=== PATIENT | male | born 1930 | race Caucasian/White ===

== ENCOUNTER 2016-07-24 14:31 | Inpatient (IN) | payer MEDICARE ==
[~2016-07-24] VITALS: Ht 177.8 cm; Wt 81.2 kg
[~2016-07-24 14:31] MED LIST: AMLO10TA2 PO; ASPI-482 PO; CALC500T27 PO; CLOP75TA27 PO; ERTA1VIA2 IV; HYDR12.58 PO; LEVE500T6 PO; LEVO50TA5 PO; LEVO75TA5 PO; LISI10TA2 PO; MAGN400C PO; METO25TA4 PO; MULT-658 PO; OMEG500C3 PO; PRED-220 PO; PROP150T PO; RAMI5CAP PO; VANC1VIA3 MC
[2016-07-24 14:59] LABS: BASO # 0.1 x10^3/uL (0.0-0.2); BASO % 1 % (0-3); EOS % 1 % (0-3); HEMATOCRIT 36.8 % (39.0-53.0); HEMOGLOBIN 12.4 g/dL (13.0-17.5); LYMPH # 1.4 x10^3/uL (1.0-4.8); LYMPH % 21 % (24-48); MEAN CORPUSCULAR HEMOGLOBIN 32 pg (25-35); MEAN CORPUSCULAR HGB CONC 34 g/dL (31-37); MEAN CORPUSCULAR VOLUME 95 fL (79-100); MONO % 8 % (0-9); NEUT % 70 % (31-73); PLATELET COUNT 143 x10^3/uL (140-400); RED BLOOD COUNT 3.87 x10^6/uL (4.30-5.70); RED CELL DISTRIBUTION WIDTH 12.7 % (11.5-14.5); WHITE BLOOD COUNT 6.6 x10^3/uL (4.0-11.0)
[2016-07-24] MEDS ORDERED: IV NORMAL SALINE 1000ML BAG 1,000 ML IV ONE (15:00)
--- NOTE | 2016-07-24 15:06 | RAD ---
Portable chest, 07/24/2016: History: Bradycardia difficulty breathing Comparison is made to a study from 11/06/2014. There has been a previous median sternotomy. The heart size is normal. There is calcific plaquing and tortuosity of the thoracic aorta. The pulmonary vascularity is normal. No pulmonary infiltrates are seen. There is no evidence of pleural fluid. IMPRESSION: 1. Aortic atherosclerosis. 2. No acute cardiopulmonary abnormality is detected.
[2016-07-24 15:11] LABS: CALCIUM 8.6 mg/dL (8.5-10.1); CREATININE 1.8 mg/dL (0.7-1.3); GFR 35.8; POTASSIUM 4.7 mmol/L (3.5-5.1)
--- NOTE | 2016-07-24 15:21 | PDOC2 ---
HINA CARTER WRAPPER STRIPPER 07/24/16 1521: CARDIAC CONSULT DATE OF CONSULT Date of Consult DATE: 07/24/16 TIME: 15:13 REASON FOR CONSULT Reason for Consult: Bradycardia REFERRING PHYSICIAN Referring Physician: Gris SOURCE Source: Chart review, Patient HISTORY OF PRESENT ILLNESS HISTORY OF PRESENT ILLNESS This is a pleasant 86 yo male admitted for complains of slow HR. He was at cardiac rehab with slight SOA during his exercise and was noted with frequent bigeminal PVCs with HR slowest at 38. He was feeling weak at that time. Denies any chest pain or lightheadedness. Denies any intermittent palpitations and his BP was adequate during that time. Denies any nausea, recent diarrhea and has been compliant with his cardiac medications. He is significant for CAD with CABG in the past and recently had what seems to be ventricular ablation in 01/2016 with prior hx of Ventricular arrhythmias. He is on metoprolol at home but unsure about the dosing. At home and previous cardiac rehab appointment such as last week, there wa no events like this and has not had any episodes of presyncopal symptoms. At times at home he does record slow HR but this is not followed up by pulse palpation to confirm slow HR. 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), Benign prostatic enlarg., Other ( ectopic left pelvic kidney) Endocrine: Hypothyroidism Dermatology: No pertinent hx PAST SURGICAL HISTORY Past Surgical History: Arthroscopy (left shoulder), CABG, Cataract Removal, Hernia Repair, Other (left carotid endarterectomy; PCI/stent) SOCIAL HISTORY Smoke: No (quit) ALCOHOL: none Drugs: None Lives: with Family ALLERGIES ALLERGIES: Coded Allergies: Penicillins (Verified Allergy, Intermediate, Rash, 11/23/14) Tolerates ertapenem Duzcrkj-Ghg-Gbm Reductase Inhibitor (Verified Allergy, Intermediate, ) moxifloxacin (Verified Allergy, Intermediate, 11/23/14) rosuvastatin calcium (Verified Allergy, Intermediate, states allergic all statins,it does something to his muscles, 11/23/14) ROS Review of System 14 point ROS evaluated with pertinent positives noted per HPI PHYSICAL EXAM General: Alert, Oriented X3, Cooperative, No acute distress HEENT: Atraumatic, Mucous membr. moist/pink Lungs: Clear to auscultation, Normal air movement Heart: Normal S1, Normal S2, Other (irregular- bigeminal PVCs HR 60s) Abdomen: Normal bowel sounds, Soft, No tenderness Extremities: No cyanosis, Other (2+ bilateral LE pitting edema) Skin: No breakdown, No significant lesion Neuro: Normal speech, Sensation intact Psych/Mental Status: Mental status NL, Mood NL MUSCULOSKELETAL: Osteoarthritic changes both hands LABS Lab: Laboratory Tests Test 07/24/16 14:46 White Blood Count 6.6x10^3/uL (4.0-11.0) Red Blood Count 3.87x10^6/uL (4.30-5.70) Hemoglobin 12.4g/dL (13.0-17.5) Hematocrit 36.8% (39.0-53.0) Mean Corpuscular Volume 95fL (79-100) Mean Corpuscular Hemoglobin 32pg (25-35) Mean Corpuscular Hemoglobin Concent 34g/dL (31-37) Red Cell Distribution Width 12.7% (11.5-14.5) Platelet Count 143x10^3/uL (140-400) Neutrophils (%) (Auto) 70% (31-73) Lymphocytes (%) (Auto) 21% (24-48) Monocytes (%) (Auto) 8% (0-9) Eosinophils (%) (Auto) 1% (0-3) Basophils (%) (Auto) 1% (0-3) Neutrophils # (Auto) 4.6x10^3uL (1.8-7.7) Lymphocytes # (Auto) 1.4x10^3/uL (1.0-4.8) Monocytes # (Auto) 0.5x10^3/uL (0.0-1.1) Eosinophils # (Auto) 0.0x10^3/uL (0.0-0.7) Basophils # (Auto) 0.1x10^3/uL (0.0-0.2) ECHOCARDIOGRAM ECHOCARDIOGRAM <Conclusion> Left ventricle is of normal size with normal wall thickness. Ejection fraction is 50%. There is a grade 1 diastolic dysfunction. There is no pericardial effusion. There is no mitral stenosis and a mild mitral regurgitation. The left atrium is enlarged to 4.6 cm. There is aortic sclerosis with thickening of the aortic valve leaflets. The aortic valve is tricuspid with no aortic stenosis or regurgitation. Right ventricle and the right atrium are of normal size. There is no pulmonary hypertension. There is a mild pulmonic regurgitation. DATE: 07/19/152030 HEART CATH HEART CATH Conclusion Severe red devil vessel coronary artery disease s/p coronary artery bypass surgery as described above with patent saphenous vein graft to the right coronary artery , patent left internal mammary artery 'Y' graft to the left anterior descending artery and diagonal branch and patent stent in the large obtuse marginal branch of left circumflex artery. The 50% stenosis involving the left main coronary artery was found to be physiologically not significant based on FFR measurement of 1.0. Recommendations Optimization of medical therapy. DATE: 11/27/14 1100 ASSESSMENT/PLAN ASSESSMENT/PLAN 1. Symptomatic Arrhythmia: Weakness and mild SOA. Frequent multiple bigeminies with slowest HR in the 38 occurring during exercise. Now in the 60-70s at rest. 2. Hx of Ventricular arrhythmias: possible ablation on 01/2016 at [facility] 3. CAD: CABG in the past. PCI/stent in the past. 4. Chronic diastolic CHF: compensated 5. 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 HTN: controlled 7. EDIS on CKD3: prerenal with dehydration likely contributing to #1. 8. Hypothyroidism 9. Mechanical fall: no injury, last Sunday. trip on a cord. Recommendations 1. Continue with metoprolol, possible poor chronotropic response. QTc is in the 450s. 2. Maintain lyte balance, K and Mg normal, trend troponin. TSH 3. TTE. 4. Will obtain records from [facility] postal supervisor. Dr. Hyatt 5. Continue with DAPT and secondary prevention measures. 6. Will likely need PPM, will monitor overnight. 7. IVF per ED, push po fluids. Problems: ROBBIE BA MD 07/25/16 1450: CARDIAC CONSULT ALLERGIES ALLERGIES: Coded Allergies: Penicillins (Verified Allergy, Intermediate, Rash, 11/23/14) Tolerates ertapenem Vppgrty-Owa-Xax Reductase Inhibitor (Verified Allergy, Intermediate, ) moxifloxacin (Verified Allergy, Intermediate, 11/23/14) rosuvastatin calcium (Verified Allergy, Intermediate, states allergic all statins,it does something to his muscles, 11/23/14) ASSESSMENT/PLAN ASSESSMENT/PLAN Patient seen and examined 07/24/16. Agree with DEER FARM WORKER's assessment and plan. Monitor closely with telemetry for evidence for sick sinus syndrome. CADs/p CABG, presently chest pain-free. Chronic diastolic heart failure clinically well compensated. Check 2-D echo to assess LV systolic function and Lexiscan nuclear stress test to rule out ischemia. We will obtain records from [facility] cardiology. Thank you for the consultation. Problems: HINA CARTER APRN Jul 24, 2016 15:21 ROBBIE BA MD Jul 25, 2016 14:50
--- NOTE | 2016-07-24 16:39 | PHYS DOC ---
Past Medical History Past Medical History: CAD, High Cholesterol, Hypertension, Hypothyroid, Renal Disease, Other Additional Past Medical Histor: falls, Past Surgical History: Coronary Bypass Surgery Additional Past Surgical Histo: two heart stents placed, right side hernia, left shoulder, left carotid Alcohol Use: None Drug Use: None Adult General Chief Complaint Chief Complaint: BRADYCARDIA HPI HPI This is an 86-year-old male who is presenting after having his morning cardiac rehabilitation exercises for weakness and a low heart rate area per that facility at a heart rate in the 30s to 40s and was symptomatic so he was sent here for evaluation. Upon arrival, the patient is bradycardic in the low 40s on palpation. He does state some mild weakness but no other significant symptoms. Denies any chest pain or shortness of breath. He states he recently had a catheterization several months ago and is being worked up for possible pacemaker placement but this had not yet been performed. Review of Systems Review of Systems Constitutional: Denies fever or chills [] Eyes: Denies change in visual acuity, redness, or eye pain [] HENT: Denies nasal congestion or sore throat [] Respiratory: Denies cough or shortness of breath [] Cardiovascular: No additional information not addressed in HPI [] GI: Denies abdominal pain, nausea, vomiting, bloody stools or diarrhea [] : Denies dysuria or hematuria [] Musculoskeletal: Denies back pain or joint pain [] Integument: Denies rash or skin lesions [] Neurologic: Denies headache, focal weakness or sensory changes [] Endocrine: Denies polyuria or polydipsia [] Current Medications Current Medications Current Medications Medications (Trade) Dose Ordered Sig/Rigoberto Start Time Stop Time Status Last Admin Dose Admin Sodium Chloride (Iv Sodium Chloride 0.9% 1000ml Bag) 1,000 ml @ 125 mls/hr Q8H 07/24/16 16:35 07/25/16 16:34 Allergies Allergies Allergies Coded Allergies Type Severity Reaction Last Updated Verified Penicillins Allergy Intermediate Rash 11/23/14 Yes Jjkiofg-Ngp-Net Reductase Inhibitor Allergy Intermediate 11/23/14 Yes moxifloxacin Allergy Intermediate 11/23/14 Yes rosuvastatin calcium Allergy Intermediate states allergic all statins,it does something to his muscles 11/23/14 Yes Physical Exam Physical Exam Constitutional: Well developed, well nourished, no acute distress, non-toxic appearance. [] HENT: Normocephalic, atraumatic, bilateral external ears normal, oropharynx moist, no oral exudates, nose normal. [] Eyes: PERRLA, EOMI, conjunctiva normal, no discharge. [] Neck: Normal range of motion, no tenderness, supple, no stridor. [] Cardiovascular:Heart rate regular rhythm, no murmur [] Lungs & Thorax: Bilateral breath sounds clear to auscultation [] Abdomen: Bowel sounds normal, soft, no tenderness, no masses, no pulsatile masses. [] Skin: Warm, dry, no erythema, no rash. [] Back: No tenderness, no CVA tenderness. [] Extremities: No tenderness, no cyanosis, no clubbing, ROM intact, no edema. [] Neurologic: Alert and oriented X 3, normal motor function, normal sensory function, no focal deficits noted. [] Psychologic: Affect normal, judgement normal, mood normal. [] Current Patient Data Vital Signs Vital Signs Date Time Temp Pulse Resp B/P Pulse Ox O2 Delivery O2 Flow Rate FiO2 07/24/16 16:35 72 24 156/62 97 Room Air 07/24/16 14:40 98.5 98.5 Lab Values Laboratory Tests Test 07/24/16 14:46 White Blood Count 6.6x10^3/uL (4.0-11.0) Red Blood Count 3.87x10^6/uL (4.30-5.70) L Hemoglobin 12.4g/dL (13.0-17.5) L Hematocrit 36.8% (39.0-53.0) L Mean Corpuscular Volume 95fL (79-100) Mean Corpuscular Hemoglobin 32pg (25-35) Mean Corpuscular Hemoglobin Concent 34g/dL (31-37) Red Cell Distribution Width 12.7% (11.5-14.5) Platelet Count 143x10^3/uL (140-400) Neutrophils (%) (Auto) 70% (31-73) Lymphocytes (%) (Auto) 21% (24-48) L Monocytes (%) (Auto) 8% (0-9) Eosinophils (%) (Auto) 1% (0-3) Basophils (%) (Auto) 1% (0-3) Neutrophils # (Auto) 4.6x10^3uL (1.8-7.7) Lymphocytes # (Auto) 1.4x10^3/uL (1.0-4.8) Monocytes # (Auto) 0.5x10^3/uL (0.0-1.1) Eosinophils # (Auto) 0.0x10^3/uL (0.0-0.7) Basophils # (Auto) 0.1x10^3/uL (0.0-0.2) Sodium Level 136mmol/L (136-145) Potassium Level 4.7mmol/L (3.5-5.1) Chloride Level 101mmol/L (98-107) Carbon Dioxide Level 24mmol/L (21-32) Anion Gap 11 (6-14) Blood Urea Nitrogen 38mg/dL (8-26) H Creatinine 1.8mg/dL (0.7-1.3) H Estimated GFR (Cockcroft-Gault) 35.8 Glucose Level 102mg/dL (70-99) H Calcium Level 8.6mg/dL (8.5-10.1) Magnesium Level 2.0mg/dL (1.8-2.4) Troponin I Quantitative < 0.017ng/mL (0.000-0.055) Thyroid Stimulating Hormone (TSH) 0.557uIU/mL (0.358-3.74) Laboratory Tests 07/24/16 14:46 Laboratory Tests 07/24/16 14:46 EKG EKG EKG as interpreted by me shows sinus urticaria with frequent PVCs and bigeminy. There is a leftward axis. There is an approximate rate of 30-40 bpm based upon the distance between QRS complex. No obvious ischemic findings. Radiology/Procedures Radiology/Procedures Portable chest, 07/24/2016: History: Bradycardia difficulty breathing Comparison is made to a study from 11/06/2014. There has been a previous median sternotomy. The heart size is normal. There is calcific plaquing and tortuosity of the thoracic aorta. The pulmonary vascularity is normal. No pulmonary infiltrates are seen. There is no evidence of pleural fluid. IMPRESSION: 1. Aortic atherosclerosis. 2. No acute cardiopulmonary abnormality is detected. Course & Med Decision Making Course & Med Decision Making Pertinent Labs and Imaging studies reviewed. (See chart for details) This 86-year-old male with symptomatic bradycardia will be admitted to the hospital for further evaluation treatment. Laboratory workup is fairly unremarkable including a set of cardiac enzymes. EKG showed significant bradycardia with frequent PVC as well as bigeminy. I discussed the case with the refinish technician, who agreed with this plan. I discussed the case with the hospitalist, Dr. Jones, who agreed to admit the patient for further evaluation and treatment. Dragon Disclaimer Dragon Disclaimer This electronic medical record was generated, in whole or in part, using a voice recognition dictation system. Departure Departure Impression: Primary Impression: Bradycardia Additional Impression: Generalized weakness Disposition: ADMITTED INPATIENT Admitting Physician: Gatito Jones Condition: STABLE Referrals: CHRIS BIRD Jr, MD (PCP) Problem Qualifiers ML ALONSO DO Jul 24, 2016 16:38
[2016-07-24] MEDS ORDERED: ONDANSETRON PF 4 MG/2 ML VIAL. IV PRN (16:45)
[2016-07-24 19:30] VITALS: BP 132/63
[2016-07-24] MEDS ORDERED: LISI-334 PO (20:46)
[2016-07-24] MEDS: predniSONE 5 MG TABLET PO SCH (21:30)
[2016-07-24] MEDS ORDERED: AMLODIPINE BESYLATE 10 MG TABLET. PO SCH (21:30)
[2016-07-24] MEDS: LEVETIRACETAM 500 MG TABLET. PO SCH (21:56)
[2016-07-24] MEDS: IV NORMAL SALINE 1000ML BAG 1,000 ML IV SCH (21:56)
[2016-07-24 23:20] VITALS: BP 141/53
--- NOTE | 2016-07-25 00:29 | HP ---
ADMIT DATE: 07/24/2016 CHIEF COMPLAINT: Bradycardia and weakness. HISTORY OF PRESENT ILLNESS: The patient is a pleasant 86-year-old male who presented to the ER with bradycardia. He was at cardiac rehab today with a slight shortness of breath, was noted to have bigeminy and a rate in the 30s. I discussed the case with the ER physician. We are going to admit the patient and consult Cardiology. PAST MEDICAL HISTORY: Hypertension, hyperlipidemia, syncope, coronary disease, V-tach, COPD, seizures, GERD, osteoarthritis, hypothyroidism, chronic renal insufficiency, BPH, coronary artery bypass grafting, cataract surgery, hernia repair, left carotid endarterectomy, arthroscopy, cardiac stents. ALLERGIES: PENICILLIN, STATINS, . FAMILY HISTORY: Coronary disease. SOCIAL HISTORY: He is retired. He does not drink, smoke or take drugs. MEDICATIONS: Reviewed, please refer to the MRAD. REVIEW OF SYSTEMS: GENERAL: No history of weight change or fevers. He complains of weakness. SKIN: No bruising, hair changes or rashes. EYES: No blurred, double or loss of vision. NOSE AND THROAT: No history of nosebleeds, hoarseness or sore throat. HEART: No history of palpitations, chest pain or shortness of breath on exertion. LUNGS: Denies cough, hemoptysis, wheezing or shortness of breath. GASTROINTESTINAL: Denies changes in appetite, nausea, vomiting, diarrhea or constipation. GENITOURINARY: No history of frequency, urgency, hesitancy or nocturia. NEUROLOGIC: Denies history of numbness, tingling, tremor or weakness. PSYCHIATRIC: No history of panic, anxiety or depression. ENDOCRINE: No history of heat or cold intolerance, polyuria or polydipsia. EXTREMITIES: Denies muscle weakness, joint pain, pain on walking or stiffness. PHYSICAL EXAMINATION: VITAL SIGNS: Temperature afebrile, pulse is currently at 60, it was as low as 34 when he arrived, his blood pressure is 161/65. His O2 sat is 95% on room air. GENERAL: He is alert, cooperative, weak. HEART: Normal S1, S2, irregular. LUNGS: Clear. ABDOMEN: Soft, positive bowel sounds. EXTREMITIES: 1+ edema. SKIN: No rashes. ENDOCRINE: No thyromegaly. LYMPHATICS: No cervical nodes. HEMATOPOIETIC: No bruising. LABORATORY DATA: White count 6, hemoglobin 12, platelets 143. Electrolytes normal other than a BUN and creatinine of 38 and 1.8. BNP is pending. TSH 0.5. Troponin is 0. ASSESSMENT AND PLAN: Symptomatic bradycardia. The patient is being admitted. We will hold any negative chronotropic agents. Serial enzymes, serial EKGs. Consult Cardiology. Resume other home medicines. PROGNOSIS: Guarded. MILTON HERNÁNDEZ DO DR: HETAL/hussein JOB#: [id number] / [id number]
[2016-07-25 03:03] VITALS: BP 152/58
[2016-07-25 05:10] LABS: BASO % 1 % (0-3); EOS % 2 % (0-3); HEMATOCRIT 35.7 % (39.0-53.0); HEMOGLOBIN 11.9 g/dL (13.0-17.5); LYMPH # 1.2 x10^3/uL (1.0-4.8); LYMPH % 22 % (24-48); MEAN CORPUSCULAR HEMOGLOBIN 32 pg (25-35); MEAN CORPUSCULAR HGB CONC 33 g/dL (31-37); MEAN CORPUSCULAR VOLUME 96 fL (79-100); MONO % 12 % (0-9); NEUT % 64 % (31-73); PLATELET COUNT 119 x10^3/uL (140-400); RED BLOOD COUNT 3.72 x10^6/uL (4.30-5.70); RED CELL DISTRIBUTION WIDTH 13.1 % (11.5-14.5); WHITE BLOOD COUNT 5.4 x10^3/uL (4.0-11.0)
[2016-07-25 05:27] LABS: CALCIUM 8.1 mg/dL (8.5-10.1); CREATININE 1.4 mg/dL (0.7-1.3); GFR 47.8; POTASSIUM 4.1 mmol/L (3.5-5.1)
[2016-07-25] MEDS: IV NORMAL SALINE 1000ML BAG 1,000 ML IV SCH ×2 (05:28→08:35)
--- NOTE | 2016-07-25 07:14 | EKG ---
[facility] [address] [place] [address] Test Date: 2016-07-24 Test Time: 14:39:31 Pat Name: RADHA MIR Department: Room: 205 1 Gender: M Traffic Expert: : [id number] Requested By: ML ALONSO Order Number: [id number] Reading MD: Ralph Grier Measurements Intervals [place] Rate: 75 P: 41 CO: 168 QRS: -23 QRSD: 110 T: -5 QT: 408 QTc: 458 Interpretive Statements SINUS RHYTHM VENTRICULAR PREMATURE COMPLEX(ES), BIGEMDAVIDY Electronically Signed On 07-25-2016 15:55:33 CDT by Ralph Grier
[2016-07-25] MEDS ORDERED: LEVOTHYROXINE 50 MCG TABLET PO SCH (07:30)
[2016-07-25 07:40] VITALS: BP 141/63
--- NOTE | 2016-07-25 08:42 | ACF ---
Admit Criteria Forms Admit Criteria Forms Admit Criteria Forms HEMODYNAMIC INSTABILITY Clinical Indications for Inpatient Care (Place 'X' for any and all applicable criteria): Ongoing inpatient care may be indicated for hemodynamic instability as indicated by ANY ONE of the following (1)(2)(3)(4)(10): [ ]I) Marked hemodynamic change from baseline (eg, SBP 20 mm Hg below patient's usual pressure) [ ]II) New SBP less than 90 mm Hg or mean arterial pressure less than 70 mm Hg [B](15) [X]IIII) Symptomatic heart rate greater than 100 or less than 60 beats per minute unresponsive to treatment (eg, analgesia, fluids) [ ]IV) Inadequate perfusion as indicated by ANY ONE of the following: [ ]a) Lactic acidosis, with lactic acid greater than 18 mg/dL (2 mmol/ L) or base excess less than -5 mEq/L [ ]b) New abnormal capillary refill (longer than 3 seconds) [ ]c) New altered mental status [ ]d) Reduced urine output [ ]V) Orthostatic vital sign changes [B] that are symptomatic and unresponsive to treatment (eg, fluids) [ ]) IV inotropic or vasopressor medication required(26) Extended stay beyond goal length of stay for primary condition may be needed until ALL of the following are present(1)(2)(3): [ ]a) Heart rate > 60 and < 100 beats per minute or patient is clinically stable at current rate (eg, baseline) [ ]b) SBP >100 mm Hg and <160 mm Hg or patient is clinically stable at current pressure (eg, baseline) [ ]c) DBP greater than 50 mm Hg and less than 100 mm Hg or patient is clinically stable at current pressure (eg, baseline) [ ]d) Urine output greater than 0.5 mL/kg per hour [ ]e) Room air oxygen saturation 90% or greater or at baseline [ ]f) Orthostatic vital sign changes absent, asymptomatic, at baseline, or manageable at lower level of care [ ]g) Medical comorbidities manageable at lower level of care The original [employer] content created by [employer] has been revised. The portions of the content which have been revised are identified through the use of italic text or in bold, and [employer] has neither reviewed nor approved the modified material. All other unmodified content is copyright [facility]. Please see references footnoted in the original [facility] edition 2016 USHA BAIN Jul 25, 2016 08:42
[2016-07-25] MEDS ORDERED: MULTIVITAMIN with MINERAL TABLET. PO SCH (09:00)
[2016-07-25] MEDS ORDERED: ASPIRIN ENTERIC COATED 81 MG TABLET.DR. PO SCH (09:00)
[2016-07-25] MEDS ORDERED: LISINOPRIL 20 MG TABLET PO SCH (09:00)
[2016-07-25] MEDS ORDERED: CLOPIDOGREL BISULFATE 75 MG TABLET PO SCH (09:00)
[2016-07-25] MEDS ORDERED: CALCIUM CARBONATE 500 MG TABLET PO SCH (09:00)
[2016-07-25] MEDS: predniSONE 5 MG TABLET PO SCH (10:30)
[2016-07-25] MEDS: LEVETIRACETAM 500 MG TABLET. PO SCH (10:30)
[2016-07-25 10:32] VITALS: BP 158/61
[2016-07-25] MEDS ORDERED: ACETAMINOPHEN 325 MG TABLET. PO PRN (11:00)
[2016-07-25] MEDS ORDERED: REGADENOSON 0.4 MG/5 ML DISP.SYRIN. IV ONE (11:15)
--- NOTE | 2016-07-25 11:49 | CARD ---
APPROVED REPORT EXAM: Two-dimensional and M-mode echocardiogram with Doppler and color Doppler. Other Information Quality : GoodHR: 76bpm INDICATION Bradycardia 2D DIMENSIONS RVDd3.1 (2.9-3.5cm)Left Atrium(2D)3.9 (1.6-4.0cm) IVSd1.1 (0.7-1.1cm)Aortic Root(2D)3.1 (2.0-3.7cm) LVDd4.2 (3.9-5.9cm)PWd1.1 (0.7-1.1cm) LVDs2.7 (2.5-4.0cm)FS (%) 34.2 % SV49.1 mlLVEF(%)60.0 (>50%) Aortic Valve AoV Peak Scott.134.4cm/sAoV VTI31.1cm AO Peak GR.7.2mmHgLVOT Peak Scott.127.1cm/s LVOT VTI 27.75cmAO Mean GR.3mmHg Mitral Valve MV E Htluoacg26.4cm/sMV DECEL [id number] MV A Xmckxffg196.5cm/sMV E Mean Gr.3mmHg MV DLZ52apZ/A Ratio0.5 MV A Tlnzpoev320ffVKD (PHT)3.00cm2 TDI E/Lateral E'5.9E/Medial E'8.0 Pulmonary Valve PV Peak Jegvmhiz255.1cm/sPV Peak Grad.8mmHg RVOT VTI16.5cm Tricuspid Valve TR P. Ugwxtvwm182am/sRAP KEWLRMXP7tfBe TR Peak Gr.41fsEuYYLT37hmRi Pulmonary Vein S1 Snkgbhwz90.8cm/sD2 Waukrspe12.3cm/s PVa lpgporfa213sodq LEFT VENTRICLE The left ventricle is normal size. There is normal left ventricular wall thickness. Left ventricle sy stolic function is low normal. EF 50-55% There is grossly normal LV segmental wall motion. The infero lateral wall was not well visualized and appears mildly hypokinetic. Transmitral Doppler flow pattern is Grade I-abnormal relaxation pattern. There is no ventricular septal defect visualized. RIGHT VENTRICLE The right ventricle is normal size. The right ventricular systolic function is normal. ATRIA The left atrium size is normal. The right atrium size is normal. The atrial septum is mildly aneurysm al. No significant ASD/PFO identified by color doppler. AORTIC VALVE The aortic valve is mildly calcified but opens well. The aortic valve is trileaflet. Doppler and [place] r Flow revealed no significant aortic regurgitation. There is no significant aortic valvular stenosis . MITRAL VALVE Mitral annular calcification is mild. The mitral valve leaflets are thickened but open well. There is no evidence of mitral valve prolapse. There is no mitral valve stenosis. Doppler and Color Flow reve aled mild mitral regurgitation. TRICUSPID VALVE The tricuspid valve is normal in structure and function. Doppler and Color Flow revealed trace tricus pid regurgitation. The PA pressure was estimated at 39 mmHg. There is no tricuspid valve stenosis. PULMONIC VALVE Doppler and Color Flow revealed mild pulmonic valvular regurgitation. There is no pulmonic valvular s tenosis. GREAT VESSELS The aortic root is normal in size. The ascending aorta is normal in size. The IVC is normal in size a nd collapses >50% with inspiration. PERICARDIAL EFFUSION There is no pleural effusion. There is no evidence of significant pericardial effusion. Critical Notification Critical Value: No <Conclusion> Left ventricle systolic function is low normal. EF 50-55% There is grossly normal LV segmental wall motion. The inferolateral wall was not well visualized and appears mildly hypokinetic. The atrial septum is mildly aneurysmal. No significant ASD/PFO identified by color doppler. The aortic valve is mildly calcified but opens well. The aortic valve is trileaflet. Doppler and Color Flow revealed mild mitral regurgitation. Doppler and Color Flow revealed trace tricuspid regurgitation. The PA pressure was estimated at 39 mm Hg.
--- NOTE | 2016-07-25 13:25 | PDOC ---
PROGRESS NOTES Chief Complaint Chief Complaint cc: symptomatic bradycardia, sob CAD with prior CABG and PCI prior left carotid endarterectomy prior ventricular arrhythmias COPD HTN HLD prior syncopal episodes GERD Osteoarthritis chronic kidney disease BPH prior seizures hypothyroidism hx of hernia s/p repair History of Present Illness History of Present Illness Patient seen and evaluated at bedside. Patient is resting, in no apparent distress. He is currently c/o a headache and is requesting some tylenol. Currently undergoing cardiac evaluation and workup. d/w nurse. Vitals Vitals Vital Signs Date Time Temp Pulse Resp B/P Pulse Ox O2 Delivery O2 Flow Rate FiO2 07/25/16 10:33 77 180/83 07/25/16 10:32 98.7 18 95 Room Air 98.7 Physical Exam General: Alert, Oriented X3, Cooperative, No acute distress Heart: Regular rate, Normal S1, Normal S2, Other Lungs: Clear, Other (negative chest retractions and/or accessory muscle use ) Abdomen: Normal bowel sounds, Soft, No tenderness Extremities: No cyanosis, Other ( compression stockings to b/l lower extremities. ) Skin: No breakdown, No significant lesion Labs LABS Laboratory Tests Test 07/24/16 14:46 07/24/16 22:05 07/25/16 04:25 White Blood Count 6.6x10^3/uL (4.0-11.0) 5.4x10^3/uL (4.0-11.0) Red Blood Count 3.87x10^6/uL (4.30-5.70) 3.72x10^6/uL (4.30-5.70) Hemoglobin 12.4g/dL (13.0-17.5) 11.9g/dL (13.0-17.5) Hematocrit 36.8% (39.0-53.0) 35.7% (39.0-53.0) Mean Corpuscular Volume 95fL (79-100) 96fL (79-100) Mean Corpuscular Hemoglobin 32pg (25-35) 32pg (25-35) Mean Corpuscular Hemoglobin Concent 34g/dL (31-37) 33g/dL (31-37) Red Cell Distribution Width 12.7% (11.5-14.5) 13.1% (11.5-14.5) Platelet Count 143x10^3/uL (140-400) 119x10^3/uL (140-400) Neutrophils (%) (Auto) 70% (31-73) 64% (31-73) Lymphocytes (%) (Auto) 21% (24-48) 22% (24-48) Monocytes (%) (Auto) 8% (0-9) 12% (0-9) Eosinophils (%) (Auto) 1% (0-3) 2% (0-3) Basophils (%) (Auto) 1% (0-3) 1% (0-3) Neutrophils # (Auto) 4.6x10^3uL (1.8-7.7) 3.4x10^3uL (1.8-7.7) Lymphocytes # (Auto) 1.4x10^3/uL (1.0-4.8) 1.2x10^3/uL (1.0-4.8) Monocytes # (Auto) 0.5x10^3/uL (0.0-1.1) 0.7x10^3/uL (0.0-1.1) Eosinophils # (Auto) 0.0x10^3/uL (0.0-0.7) 0.1x10^3/uL (0.0-0.7) Basophils # (Auto) 0.1x10^3/uL (0.0-0.2) 0.0x10^3/uL (0.0-0.2) Sodium Level 136mmol/L (136-145) 141mmol/L (136-145) Potassium Level 4.7mmol/L (3.5-5.1) 4.1mmol/L (3.5-5.1) Chloride Level 101mmol/L (98-107) 105mmol/L (98-107) Carbon Dioxide Level 24mmol/L (21-32) 26mmol/L (21-32) Anion Gap 11 (6-14) 10 (6-14) Blood Urea Nitrogen 38mg/dL (8-26) 31mg/dL (8-26) Creatinine 1.8mg/dL (0.7-1.3) 1.4mg/dL (0.7-1.3) Estimated GFR (Cockcroft-Gault) 35.8 47.8 Glucose Level 102mg/dL (70-99) 81mg/dL (70-99) Calcium Level 8.6mg/dL (8.5-10.1) 8.1mg/dL (8.5-10.1) Magnesium Level 2.0mg/dL (1.8-2.4) Troponin I Quantitative < 0.017ng/mL (0.000-0.055) 0.035ng/mL (0.000-0.055) 0.072ng/mL (0.000-0.055) Thyroid Stimulating Hormone (TSH) 0.557uIU/mL (0.358-3.74) Review of Systems Review of Systems (+) headache Denies chest pain, sob, abdominal pain, n/v/d, dizziness/lightheadedness, vision changes, or fever/chills. Assessment and Plan Assessmemt and Plan Problems Medical Problems: (1) Bradycardia Status: Acute (2) Generalized weakness Status: Acute Assessment: 1.) symptomatic bradycardia, currently sinus and asymptomatic 2.) CAD, with prior CABG and PCI/stents 3.) HTN 4.) CHF, currently compensated 5.) EDIS on CKD3: 6.) Hypothyroidism 7.) COPD 8.) Hyperlipidemia 9.) prior syncopal episodes 10.) hx of prior ventricular arrhythmias Plan: 1.) continue telemetry monitoring 2.) encourage PO hydration 3.) appreciate subspecialty input 4.) continue home medications as appropriate 5.) monitor AM labs Problems: Comment Review of Relevant I have reviewed the following items yolande (where applicable) has been applied. Labs Laboratory Tests Test 07/24/16 14:46 07/24/16 22:05 07/25/16 04:25 White Blood Count 6.6x10^3/uL (4.0-11.0) 5.4x10^3/uL (4.0-11.0) Red Blood Count 3.87x10^6/uL (4.30-5.70) 3.72x10^6/uL (4.30-5.70) Hemoglobin 12.4g/dL (13.0-17.5) 11.9g/dL (13.0-17.5) Hematocrit 36.8% (39.0-53.0) 35.7% (39.0-53.0) Mean Corpuscular Volume 95fL (79-100) 96fL (79-100) Mean Corpuscular Hemoglobin 32pg (25-35) 32pg (25-35) Mean Corpuscular Hemoglobin Concent 34g/dL (31-37) 33g/dL (31-37) Red Cell Distribution Width 12.7% (11.5-14.5) 13.1% (11.5-14.5) Platelet Count 143x10^3/uL (140-400) 119x10^3/uL (140-400) Neutrophils (%) (Auto) 70% (31-73) 64% (31-73) Lymphocytes (%) (Auto) 21% (24-48) 22% (24-48) Monocytes (%) (Auto) 8% (0-9) 12% (0-9) Eosinophils (%) (Auto) 1% (0-3) 2% (0-3) Basophils (%) (Auto) 1% (0-3) 1% (0-3) Neutrophils # (Auto) 4.6x10^3uL (1.8-7.7) 3.4x10^3uL (1.8-7.7) Lymphocytes # (Auto) 1.4x10^3/uL (1.0-4.8) 1.2x10^3/uL (1.0-4.8) Monocytes # (Auto) 0.5x10^3/uL (0.0-1.1) 0.7x10^3/uL (0.0-1.1) Eosinophils # (Auto) 0.0x10^3/uL (0.0-0.7) 0.1x10^3/uL (0.0-0.7) Basophils # (Auto) 0.1x10^3/uL (0.0-0.2) 0.0x10^3/uL (0.0-0.2) Sodium Level 136mmol/L (136-145) 141mmol/L (136-145) Potassium Level 4.7mmol/L (3.5-5.1) 4.1mmol/L (3.5-5.1) Chloride Level 101mmol/L (98-107) 105mmol/L (98-107) Carbon Dioxide Level 24mmol/L (21-32) 26mmol/L (21-32) Anion Gap 11 (6-14) 10 (6-14) Blood Urea Nitrogen 38mg/dL (8-26) 31mg/dL (8-26) Creatinine 1.8mg/dL (0.7-1.3) 1.4mg/dL (0.7-1.3) Estimated GFR (Cockcroft-Gault) 35.8 47.8 Glucose Level 102mg/dL (70-99) 81mg/dL (70-99) Calcium Level 8.6mg/dL (8.5-10.1) 8.1mg/dL (8.5-10.1) Magnesium Level 2.0mg/dL (1.8-2.4) Troponin I Quantitative < 0.017ng/mL (0.000-0.055) 0.035ng/mL (0.000-0.055) 0.072ng/mL (0.000-0.055) Thyroid Stimulating Hormone (TSH) 0.557uIU/mL (0.358-3.74) Laboratory Tests Test 07/24/16 14:46 07/24/16 22:05 07/25/16 04:25 White Blood Count 6.6x10^3/uL (4.0-11.0) 5.4x10^3/uL (4.0-11.0) Red Blood Count 3.87x10^6/uL (4.30-5.70) 3.72x10^6/uL (4.30-5.70) Hemoglobin 12.4g/dL (13.0-17.5) 11.9g/dL (13.0-17.5) Hematocrit 36.8% (39.0-53.0) 35.7% (39.0-53.0) Mean Corpuscular Volume 95fL (79-100) 96fL (79-100) Mean Corpuscular Hemoglobin 32pg (25-35) 32pg (25-35) Mean Corpuscular Hemoglobin Concent 34g/dL (31-37) 33g/dL (31-37) Red Cell Distribution Width 12.7% (11.5-14.5) 13.1% (11.5-14.5) Platelet Count 143x10^3/uL (140-400) 119x10^3/uL (140-400) Neutrophils (%) (Auto) 70% (31-73) 64% (31-73) Lymphocytes (%) (Auto) 21% (24-48) 22% (24-48) Monocytes (%) (Auto) 8% (0-9) 12% (0-9) Eosinophils (%) (Auto) 1% (0-3) 2% (0-3) Basophils (%) (Auto) 1% (0-3) 1% (0-3) Neutrophils # (Auto) 4.6x10^3uL (1.8-7.7) 3.4x10^3uL (1.8-7.7) Lymphocytes # (Auto) 1.4x10^3/uL (1.0-4.8) 1.2x10^3/uL (1.0-4.8) Monocytes # (Auto) 0.5x10^3/uL (0.0-1.1) 0.7x10^3/uL (0.0-1.1) Eosinophils # (Auto) 0.0x10^3/uL (0.0-0.7) 0.1x10^3/uL (0.0-0.7) Basophils # (Auto) 0.1x10^3/uL (0.0-0.2) 0.0x10^3/uL (0.0-0.2) Sodium Level 136mmol/L (136-145) 141mmol/L (136-145) Potassium Level 4.7mmol/L (3.5-5.1) 4.1mmol/L (3.5-5.1) Chloride Level 101mmol/L (98-107) 105mmol/L (98-107) Carbon Dioxide Level 24mmol/L (21-32) 26mmol/L (21-32) Anion Gap 11 (6-14) 10 (6-14) Blood Urea Nitrogen 38mg/dL (8-26) 31mg/dL (8-26) Creatinine 1.8mg/dL (0.7-1.3) 1.4mg/dL (0.7-1.3) Estimated GFR (Cockcroft-Gault) 35.8 47.8 Glucose Level 102mg/dL (70-99) 81mg/dL (70-99) Calcium Level 8.6mg/dL (8.5-10.1) 8.1mg/dL (8.5-10.1) Magnesium Level 2.0mg/dL (1.8-2.4) Troponin I Quantitative < 0.017ng/mL (0.000-0.055) 0.035ng/mL (0.000-0.055) 0.072ng/mL (0.000-0.055) Thyroid Stimulating Hormone (TSH) 0.557uIU/mL (0.358-3.74) Medications Current Medications Sodium Chloride (Iv Sodium Chloride 0.9% 1000ml Bag) 1,000 ml @ 1,000 mls/hr 1X ONCE IV Last administered on 07/24/16 15:53; Start 07/24/16 at 15:00; Stop 07/24/16 at 15:59; Status DC Ondansetron HCl 4 mg 4 mg PRN Q8HRS PRN IV NAUSEA/VOMITING; Start 07/24/16 at 16:45; Stop 07/25/16 at 16:44 Sodium Chloride (Iv Sodium Chloride 0.9% 1000ml Bag) 1,000 ml @ 125 mls/hr Q8H IV Last administered on 07/25/16 05:28; Start 07/24/16 at 16:35; Stop at 16:34 Amlodipine Besylate (Norvasc) 10 mg HS PO Last administered on 07/24/16 21:57 ; Start 07/24/16 at 21:30 Aspirin (Ecotrin) 81 mg DAILY PO Last administered on 07/25/16 10:33; Start at 09:00 Calcium Carbonate/ Glycine (Oscal) 500 mg DAILY PO Last administered on 10:30; Start 07/25/16 at 09:00 Clopidogrel Bisulfate (Plavix) 75 mg DAILY PO Last administered on 07/25/16 11 :29; Start 07/25/16 at 09:00 Levetiracetam (Keppra) 500 mg BID PO Last administered on 07/25/16 10:30; Start 07/24/16 at 21:30 Levothyroxine Sodium (Synthroid) 50 mcg DAILYAC PO Last administered on 06:22; Start 07/25/16 at 07:30 Lisinopril (Prinivil) 20 mg DAILY PO Last administered on 07/25/16 10:33; Start 07/25/16 at 09:00 Prednisone (Prednisone) 5 mg BID PO Last administered on 07/25/16 10:30; Start 07/24/16 at 21:30 Multivitamins (Thera M Plus) 1 tab DAILY PO Last administered on 07/25/16 10: 33; Start 07/25/16 at 09:00 Acetaminophen (Tylenol) 650 mg PRN Q6HRS PRN PO pain Last administered on 11:29; Start 07/25/16 at 11:00 Regadenoson (Lexiscan) 0.4 mg 1X ONCE IV Last administered on 07/25/16 11:15 ; Start 07/25/16 at 11:15; Stop 07/25/16 at 11:16; Status DC Active Scripts Active Reported Lisinopril 20 Mg Tablet 1 Tab PO DAILY Levetiracetam 500 Mg Tablet 1 Tab PO BID Levothyroxine Sodium 50 Mcg Tablet 50 Mg PO DAILY Prednisone 10 Mg Tablet 5 Mg PO DAILY Aspir 81 (Aspirin) 81 Mg Tablet.dr 81 Mg PO HS Calcium (Calcium Carbonate) 500 Mg Tablet 600 Mg PO DAILY Centrum Silver Tablet (Multivits-Min/Fa/Lycopene/Lut) 1 Each Tablet 1 Each PO DAILY Amlodipine Besylate 10 Mg Tablet 10 Mg PO HS Metoprolol Tartrate 25 Mg Tablet 25 Mg PO BID Plavix (Clopidogrel Bisulfate) 75 Mg Tablet 75 Mg PO DAILY Vitals/I & O Vital Sign - Last 24 Hours 07/24/16 07/24/16 07/24/16 07/24/16 14:40 15:05 15:35 16:05 Temp 98.5 98.5 Pulse 34 72 72 72 Resp 27 22 24 24 B/P 160/68 141/76 150/74 149/66 Pulse Ox 97 97 97 97 O2 Delivery Room Air Room Air Room Air Room Air 4/07/24/16 07/24/16 07/24/16 16:35 17:05 17:35 18:05 Pulse 72 65 67 67 Resp B/P 156/62 161/65 149/63 167/70 Pulse Ox 97 97 95 95 O2 Delivery Room Air Room Air Room Air Room Air 07/24/16 07/24/16 07/24/16 07/24/16 18:35 19:20 19:30 21:57 Temp 97.8 97.8 Pulse 67 73 73 Resp B/P 169/77 132/63 132/63 Pulse Ox 95 96 O2 Delivery Room Air Room Air Room Air 07/24/16 07/25/16 07/25/16 07/25/16 23:20 03:03 07:40 08:00 Temp 97.9 98.8 98.8 97.9 98.8 98.8 Pulse 64 71 78 Resp B/P 141/53 152/58 141/63 Pulse Ox 95 93 95 O2 Delivery Room Air Room Air Room Air Room Air 07/25/16 07/25/16 10:32 10:33 Temp 98.7 98.7 Pulse 78 77 Resp B/P 158/61 180/83 Pulse Ox 95 O2 Delivery Room Air Intake and Output 07/24/16 07/24/16 07/25/16 15:00 23:00 07:00 Intake Total 1000 ml 500 ml Balance 1000 ml 500 ml BETTYNIAL K III DO Jul 25, 2016 13:25
--- NOTE | 2016-07-25 13:53 | PDOC ---
HINA CARTER DEHYDROGENATION CONVERTER HELPER 07/25/16 1353: CARDIO Progress Notes Date and Time Date of Service 07/25/2016 Vitals Vitals Vital Signs Date Time Temp Pulse Resp B/P Pulse Ox O2 Delivery O2 Flow Rate FiO2 07/25/16 10:33 77 180/83 07/25/16 10:32 98.7 18 95 Room Air 98.7 Weight Weight [ ] Input and Output Intake and Output Intake and Output 07/25/16 07:00 Intake Total 1500 ml Balance 1500 ml Intake Oral 500 ml IV Total 1000 ml # Voids 7 Laboratory Labs Laboratory Tests Test 07/24/16 14:46 07/24/16 22:05 07/25/16 04:25 White Blood Count 6.6x10^3/uL (4.0-11.0) 5.4x10^3/uL (4.0-11.0) Red Blood Count 3.87x10^6/uL (4.30-5.70) 3.72x10^6/uL (4.30-5.70) Hemoglobin 12.4g/dL (13.0-17.5) 11.9g/dL (13.0-17.5) Hematocrit 36.8% (39.0-53.0) 35.7% (39.0-53.0) Mean Corpuscular Volume 95fL (79-100) 96fL (79-100) Mean Corpuscular Hemoglobin 32pg (25-35) 32pg (25-35) Mean Corpuscular Hemoglobin Concent 34g/dL (31-37) 33g/dL (31-37) Red Cell Distribution Width 12.7% (11.5-14.5) 13.1% (11.5-14.5) Platelet Count 143x10^3/uL (140-400) 119x10^3/uL (140-400) Neutrophils (%) (Auto) 70% (31-73) 64% (31-73) Lymphocytes (%) (Auto) 21% (24-48) 22% (24-48) Monocytes (%) (Auto) 8% (0-9) 12% (0-9) Eosinophils (%) (Auto) 1% (0-3) 2% (0-3) Basophils (%) (Auto) 1% (0-3) 1% (0-3) Neutrophils # (Auto) 4.6x10^3uL (1.8-7.7) 3.4x10^3uL (1.8-7.7) Lymphocytes # (Auto) 1.4x10^3/uL (1.0-4.8) 1.2x10^3/uL (1.0-4.8) Monocytes # (Auto) 0.5x10^3/uL (0.0-1.1) 0.7x10^3/uL (0.0-1.1) Eosinophils # (Auto) 0.0x10^3/uL (0.0-0.7) 0.1x10^3/uL (0.0-0.7) Basophils # (Auto) 0.1x10^3/uL (0.0-0.2) 0.0x10^3/uL (0.0-0.2) Sodium Level 136mmol/L (136-145) 141mmol/L (136-145) Potassium Level 4.7mmol/L (3.5-5.1) 4.1mmol/L (3.5-5.1) Chloride Level 101mmol/L (98-107) 105mmol/L (98-107) Carbon Dioxide Level 24mmol/L (21-32) 26mmol/L (21-32) Anion Gap 11 (6-14) 10 (6-14) Blood Urea Nitrogen 38mg/dL (8-26) 31mg/dL (8-26) Creatinine 1.8mg/dL (0.7-1.3) 1.4mg/dL (0.7-1.3) Estimated GFR (Cockcroft-Gault) 35.8 47.8 Glucose Level 102mg/dL (70-99) 81mg/dL (70-99) Calcium Level 8.6mg/dL (8.5-10.1) 8.1mg/dL (8.5-10.1) Magnesium Level 2.0mg/dL (1.8-2.4) Troponin I Quantitative < 0.017ng/mL (0.000-0.055) 0.035ng/mL (0.000-0.055) 0.072ng/mL (0.000-0.055) Thyroid Stimulating Hormone (TSH) 0.557uIU/mL (0.358-3.74) Assessment Assessment 1. Symptomatic bradycardia: Slowest at 38 with multiple ventricular bigeminies. No further tobin episodes overnight. SR with PVCs. chronotropic incompetence vs intolerance to BB 2. Hx of Ventricular arrhythmias: possible ablation on 01/2016 at [facility] 3. CAD: CABG in the past. PCI/stent in the past. CP free 4. Chronic diastolic CHF: compensated. TTE with mild hypokinesis to inferolateral wall otherwise normal wall motion with preserved EF. 5. 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 HTN: controlled 7. EDIS on CKD3: prerenal with dehydration likely contributing to #1. 8. Hypothyroidism 9. Mechanical fall: no injury, last Sunday. trip on a cord. Recommendations 1. MPI today to rule out any ischemic component. 2. Continue with DAPT and secondary prevention measures. 3. Will obtain records from [facility] escalator service mechanic. Dr. Hyatt 4. Will need event monitor. Will likely need PPM. Will defer this to his [facility] escalator service mechanic/EP 5. Hold AV rhonda blocking agents for now. ROBBIE BA MD 07/25/16 7886: CARDIO Progress Notes Assessment Assessment Patient seen and examined. Agree with REMEDIATION TECHNICIAN's assessment and plan. Telemetry showed episodes of sinus bradycardia without any significant pauses or other arrhythmias. 2-D echo showed LVEF 50-55%. Lexiscan nuclear stress test showed lateral wall infarct without any significant ischemia. Plan for event monitor as an outpatient. HINA CARTER DEHYDROGENATION CONVERTER HELPER Jul 25, 2016 13:53 ROBBIE BA MD Jul 25, 2016 14:59
[2016-07-25 14:24] VITALS: BP 144/62
--- NOTE | 2016-07-25 14:56 | RAD ---
APPROVED REPORT Test Type: Pharmacological Stress Nurse/Tech: Joselyn Marvin R.N. Test Indications: bradycardia, Cardiac History: CABG, stent, htn, Medications: see ehr Medical History: see ehr Resting ECG: SR with PVCs-multifocal Resting Heart Rate: 82 bpm Resting Blood Pressure: 143/57mmHg Pretest Chest Pain: No chest pain Nurse/Tech Notes heart tones regular, lungs cta, good radial pulse Consent: The procedure was explained to the patient in lay terms. Informed consent was witnessed. Santosh eout was entered into [employer]. History and Stress Test performed by Joselyn Marvin R.N. Pharm. Details Pharmacologic stress testing was performed using 0.4mg per 5ml of regadenoson given intravenously ove r 7-10 seconds. Stress Symptoms No chest pain or symptoms. POST EXERCISE Reason for Termination: Infusion complete Target HR: No Max HR: 100 bpm Max Blood Pressure: 139/61mmHg Chest Pain: No. Arrhythmia: Yes. cont to have multi focal pvcs ST Change: No. INTERPRETATION Stress EKG Conclusion: Baseline EKG showed sinus rhythm with PVC. No diagnostic evidence of ischemia at peak stress. No significant arrhythmias. Imaging Protocol IMAGE PROTOCOL: Rest Tc-99m/stress Tc-99m 1 day Rest: Stress: Viability: Radiopharm.Tc99m [id number] Sestamibi [id number] 30mCi Duration 15min. 10min. Img Date 07/25/2016 07/25/2016 Inj-Img [id number]. 60min. Rest Admin Site:IV - Right ForearmAdministrator:RT Fan (R)(N) Stress Admin Site: IV - Right ForearmAdministrator: REBECCA Herrera STRESS DATA End Diast. Vol.116.0mlAv. Heart Rate74.0bpm End Syst. Vol.36.0mlCO Index BSA0.0L/min Myocardial Uxgj264.0gEject. Tzuhxbxp02.0% Stress Rates Pk. Fill Rate2.76EDV/secLVtime Pk. Fill 233.95msec Pk. Empty Rate3.40ESV/secLVtime Pk. Hdult502.07msec 04/04 Pk. Fill0.38EDV/sec Stress Scores Regional WT0.00Summed WT0.00 Regional WM0.00Summed WM7.00 Study quality was good. Left Ventricular size was Normal at Rest and Stress. LV Perfusion Scintigraphic images showed moderate fixed defect involving the base to mid lateral wall consistent w ith previous myocardial infarction without any significant reversibility. Wall Motion Basal lateral wall hypokinesis with ejection fraction calculated at 69%. LV Perf. Quant 17 Seg. SSS6.00 17 Seg. SRS6.00 17 Seg. SDS0.00 Stress Defect Extent (% LAD)0.00Rest Defect Extent (% LAD)0.00Rev. Defect Extent (% LAD)0.00 Stress Defect Extent (% LCX) 75.00Rest Defect Extent (% LCX)60.00Rev. Defect Extent (% LCX)30.00 Stress Defect Extent (% RCA)0.00Rest Defect Extent (% RCA)0.00Rev. Defect Extent (% RCA)0.00 Stress Defect Extent (% BOBBY)15.70Rest Defect Extent (% BOBBY)11.10Rev. Defect Extent (% BOBBY)6.10 Conclusion 1. Regadenoson cardioisotope stress test showed moderate sized infarct involving the base to mid late ral wall without any significant ischemia.. 2. Basal lateral wall hypokinesis with ejection fraction calculated at 69%. 3. Low risk for cardiac events.
== END 2016-07-25 16:00 | disposition home or self-care (01) | DRG 308 ==
LOC: ER 14:31 → ED HOLD 16:35 → 2 NORTH 19:06
PROVIDERS: ADMIT Internal Medicine; ATTEND Internal Medicine
DX: R00.1 Bradycardia, unspecified (principal); N17.0 Acute kidney failure with tubular necrosis; I50.32 Chronic diastolic (congestive) heart failure; I13.0 Hypertensive heart and chronic kidney disease with heart failure and stage 1 through stage 4 chronic kidney disease, or unspecified chronic kidney disease; E03.9 Hypothyroidism, unspecified; E78.00 Pure hypercholesterolemia, unspecified; M19.90 Unspecified osteoarthritis, unspecified site; E78.5 Hyperlipidemia, unspecified; I25.10 Atherosclerotic heart disease of native coronary artery without angina pectoris; I70.0 Atherosclerosis of aorta; J44.9 Chronic obstructive pulmonary disease, unspecified; K21.9 Gastro-esophageal reflux disease without esophagitis; N18.3 Chronic kidney disease, stage 3 (moderate); N40.0 Benign prostatic hyperplasia without lower urinary tract symptoms; W19.XXXA Unspecified fall, initial encounter; Y93.89 Activity, other specified; Y92.89 Other specified places as the place of occurrence of the external cause; Y99.8 Other external cause status; Z95.1 Presence of aortocoronary bypass graft; Z95.5 Presence of coronary angioplasty implant and graft; Z79.899 Other long term (current) drug therapy; Z79.82 Long term (current) use of aspirin; Z88.0 Allergy status to penicillin; Z88.8 Allergy status to other drugs, medicaments and biological substances; Z82.49 Family history of ischemic heart disease and other diseases of the circulatory system; Z98.49 Cataract extraction status, unspecified eye; Z88.1 Allergy status to other antibiotic agents
CPT/HCPCS: 36415; 71010; 78452; 80048; 83735; 84443; 84484; 85027; 93005; 93017; 93306; 96360; 96374; 96375; 96376; A9500; J2785; J7030; J7512; 99285-25

== ENCOUNTER 2016-11-24 09:20 | Emergency (ER) | payer MEDICARE ==
[~2016-11-24] VITALS: Ht 177.8 cm; Wt 81.2 kg
[~2016-11-24 09:20] MED LIST changes: -CALC500T27 PO; +CALC500T30 PO; -CLOP75TA27 PO; +CLOP75TA57 PO; +LISI-334 PO
[2016-11-24] MEDS ORDERED: NEOMY/BACITR/POLYMYXIN OINT PACKET. TP ONE (10:00)
--- NOTE | 2016-11-24 10:07 | PHYS DOC ---
Past Medical History Past Medical History: CAD, High Cholesterol, Hypertension, Hypothyroid, VT, Renal Disease Additional Past Medical Histor: falls, Past Surgical History: Angioplasty, Coronary Bypass Surgery Additional Past Surgical Histo: two heart stents placed, right side hernia, left shoulder, left carotid Alcohol Use: None Drug Use: None Adult General Chief Complaint Chief Complaint: UPPER EXTREMITY INJURY [facility] HPI Patient is a 86 year old male who presents with complaint of head injury and elbow injury after suffering an accidental fall at home. The patient states that he was in his yard doing work when he bent over to pick something up, and this caused him to suddenly looses balance. The patient fell forward and struck the right side of his face and his right elbow on the ground. Patient denied any loss of consciousness. The patient was able to get up off of the ground by himself. The patient states that he suffered a cut on his right elbow. The patient dressed his wound at home prior to arrival with rolled gauze. Patient denies any other complaints at this time. The patient's main concern is his right elbow as he did not know if his wound would need to be stitched. The patient does admit that he is taking Plavix at this time. Patient has history of coronary artery disease and previous VT resulting in current use of Plavix. The patient states that he currently feels at his baseline state of health and does not feel that he broke any bones. Review of Systems Review of Systems Constitutional: Denies fever or chills [] Eyes: Denies change in visual acuity, redness, or eye pain [] HENT: Facial swelling, denies nasal congestion or sore throat [] Respiratory: Denies cough or shortness of breath [] Cardiovascular: No additional information not addressed in HPI [] GI: Denies abdominal pain, nausea, vomiting, bloody stools or diarrhea [] : Denies dysuria or hematuria [] Musculoskeletal: Denies back pain or joint pain [] Integument: Skin tear to right elbow [] Neurologic: Denies headache, focal weakness or sensory changes [] Endocrine: Denies polyuria or polydipsia [] Current Medications Current Medications Current Medications Medications (Trade) Dose Ordered Sig/Rigoberto Start Time Stop Time Status Last Admin Dose Admin Neomycin/ Polymyxin/ Bacitracin (Triple Antibiotic Ointment) 1 pkt 1X ONCE 11/24/16 10:00 11/24/16 10:01 DC 11/24/16 10:17 1 PKT Allergies Allergies Allergies Coded Allergies Type Severity Reaction Last Updated Verified Penicillins Allergy Intermediate Rash 11/23/14 Yes Gyhface-Ayz-Opc Reductase Inhibitor Allergy Intermediate 11/23/14 Yes moxifloxacin Allergy Intermediate 11/23/14 Yes rosuvastatin calcium Allergy Intermediate states allergic all statins,it does something to his muscles 11/23/14 Yes Physical Exam Physical Exam Constitutional: Alert, afebrile, no acute distress [] HENT: Normocephalic, 2 cm hematoma present over right zygomatic arch, bilateral external ears normal, oropharynx moist, no oral exudates, nose normal. [] Eyes: PERRLA, EOMI, conjunctiva normal, no discharge. [] Neck: Normal range of motion, no tenderness, supple, no stridor. [] Cardiovascular:Heart rate regular rhythm, no murmur [] Lungs & Thorax: Bilateral breath sounds clear to auscultation [] Abdomen: Bowel sounds normal, soft, no tenderness, no masses, no pulsatile masses. [] Skin: Warm, dry, no erythema, no rash. [] Back: No tenderness, no CVA tenderness. [] Extremities: 3-1/2 cm skin tear to the lateral aspect of right elbow with underlying ecchymosis, no cyanosis, no clubbing, ROM intact, no edema. [] Neurologic: Alert and oriented X 3, normal motor function, normal sensory function, no focal deficits noted. [] Current Patient Data Vital Signs Vital Signs Date Time Temp Pulse Resp B/P (MAP) Pulse Ox O2 Delivery O2 Flow Rate FiO2 11/24/16 10:20 72 18 137/79 (98) 97 Room Air 11/24/16 09:35 98.3 98.3 EKG EKG Not performed [] Radiology/Procedures Radiology/Procedures [facility] [address] [place] [address] IMAGING REPORT Signed PATIENT: RADHA MIR ACCOUNT: [id number] : 1930 LOCATION: ER AGE: 86 SEX: M EXAM STATUS: REG ER ORD. PHYSICIAN: RICHARD KWON MD REASON: fall, closed head injury, currently on Plavix PROCEDURE: CT HEAD WO CONTRAST CT of the head without contrast, 11/24/2016: History: Fall, head injury Comparison is made to a study from 07/18/2015. There is moderate cerebral atrophy. There are mild patchy lucencies in the deep white matter bilaterally compatible with chronic ischemic change. 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 The ventricles are within normal limits in size. There is no shift of the midline structures. There is no evidence of acute intracranial hemorrhage or mass effect. There is calcific plaquing of the distal internal carotid and vertebral arteries. IMPRESSION: 1. Chronic findings as described above. 2. No acute intracranial abnormality is detected. RS Compliance Statement: One or more of the following individualized dose reduction techniques were utilized for this examination: 1. Automated exposure control 2. Adjustment of the mA and/or kV according to patient size 3. Use of iterative reconstruction technique DICTATED and SIGNED BY: TAMIKA WALTERS MD DATE: 11/24/16 1020 CC: RICHARD KWON MD; CHRIS BIRD Jr, MD ~ [] Course & Med Decision Making Course & Med Decision Making Pertinent Labs and Imaging studies reviewed. (See chart for details) Head CT negative. Patient's elbow wound was dressed using antibiotic ointment, Telfa, and rolled gauze. The patient continues to be in no acute distress. Patient discharged home with recommendation for routine wound care to the skin tear of his right elbow. Advised follow-up in 3-5 days for reevaluation and return to emergency department for any worsening symptoms. Patient voiced understanding and in agreement with treatment plan. Dragon Disclaimer Dragon Disclaimer This electronic medical record was generated, in whole or in part, using a voice recognition dictation system. Departure Departure Impression: Primary Impression: Fall from standing Additional Impressions: Skin tear of elbow without complication Facial contusion Disposition: 01 HOME, SELF-CARE Condition: IMPROVED Referrals: CHRIS BIRD Jr, MD (PCP) Patient Instructions: Facial or Scalp Contusion, Fall Prevention and Home Safety, Skin Tear Care Additional Instructions: Follow-up with your primary doctor in 3-5 days for reevaluation. Return to the emergency department for any worsening symptoms. Scripts Mupirocin (MUPIROCIN OINTMENT) 22 Gm Oint...g. 1 LADAN TP BID for WOUND CARE, #1 TUBE Prov: RICHARD KWON MD 11/24/16 Problem Qualifiers Primary Impression: Fall from standing Encounter type: initial encounter Qualified Codes: W19.XXXA - Unspecified fall, initial encounter Additional Impressions: Skin tear of elbow without complication Encounter type: initial encounter Laterality: right Qualified Codes: S51.011A - Laceration without foreign body of right elbow, initial encounter Facial contusion Encounter type: initial encounter Qualified Codes: S00.83XA - Contusion of other part of head, initial encounter RICHARD KWON MD Nov 24, 2016 10:07
--- NOTE | 2016-11-24 10:25 | RAD ---
CT of the head without contrast, 11/24/2016: History: Fall, head injury Comparison is made to a study from 07/18/2015. There is moderate cerebral atrophy. There are mild patchy lucencies in the deep white matter bilaterally compatible with chronic ischemic change. 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 The ventricles are within normal limits in size. There is no shift of the midline structures. There is no evidence of acute intracranial hemorrhage or mass effect. There is calcific plaquing of the distal internal carotid and vertebral arteries. IMPRESSION: 1. Chronic findings as described above. 2. No acute intracranial abnormality is detected. PQRS Compliance Statement: One or more of the following individualized dose reduction techniques were utilized for this examination: 1. Automated exposure control 2. Adjustment of the mA and/or kV according to patient size 3. Use of iterative reconstruction technique
[2016-11-24 10:30] VITALS: BP 122/78
[2016-11-24] MEDS ORDERED: MUPI22OI2 TP (10:47)
== END 2016-11-24 10:59 | disposition home or self-care (01) ==
LOC: ER 09:20
DX: S51.011A Laceration without foreign body of right elbow, initial encounter (principal); S00.83XA Contusion of other part of head, initial encounter; E78.00 Pure hypercholesterolemia, unspecified; I12.9 Hypertensive chronic kidney disease with stage 1 through stage 4 chronic kidney disease, or unspecified chronic kidney disease; N18.9 Chronic kidney disease, unspecified; I25.10 Atherosclerotic heart disease of native coronary artery without angina pectoris; E03.9 Hypothyroidism, unspecified; I25.2 Old myocardial infarction; Z95.5 Presence of coronary angioplasty implant and graft; Z95.1 Presence of aortocoronary bypass graft; Z88.0 Allergy status to penicillin; Z88.1 Allergy status to other antibiotic agents; Z88.8 Allergy status to other drugs, medicaments and biological substances; Z91.041 Radiographic dye allergy status; W18.39XA Other fall on same level, initial encounter; Y93.89 Activity, other specified; Y99.8 Other external cause status; Y92.89 Other specified places as the place of occurrence of the external cause
CPT/HCPCS: 70450; 99284-25